=== PATIENT | female | born 1985 | race Caucasian/White ===

== ENCOUNTER 2017-07-17 10:39 | Inpatient (IN) | payer OTHER ==
[~2017-07-17] VITALS: Ht 176 cm; Wt 96.2 kg
[2017-07-17] MEDS ORDERED: OXYTOCIN 30 UNITS/LACT RINGERS 500 ML IV ONE ×2 (10:50→13:10)
[2017-07-17] MEDS ORDERED: OXYTOCIN 30 UNITS/LACT RINGERS 500 ML IV PRN (10:50)
[2017-07-17] MEDS ORDERED: RINGERS SOLUTION,LACTATED 1,000 ML IV PRN (10:50)
[2017-07-17] MEDS ORDERED: RINGERS SOLUTION,LACTATED 1,000 ML IV SCH (10:50)
[2017-07-17] MEDS ORDERED: CITRIC ACID/SODIUM CITRATE 30 ML SOLUTION UDCUP PO PRN (11:00)
[2017-07-17] MEDS ORDERED: METOCLOPRAMIDE HCL 5 MG/ML 2 ML VIAL IVP PRN (11:00)
[2017-07-17 12:21] VITALS: BP 118/77
[2017-07-17 12:44] LABS: EOSINOPHILS % (AUTO) 0.7 % (1.0-6.0); HEMATOCRIT 33.2 % (36-46); HEMOGLOBIN 11.2 g/dL (12.0-16.0); LYMPHOCYTES # (AUTO) 1.4 K/uL (1.0-4.8); LYMPHOCYTES % (AUTO) 10.3 % (22.0-44.0); MEAN CORPUSCULAR HEMOGLOBIN 26.6 pg (26.0-34.0); MEAN CORPUSCULAR HGB CONC 33.8 G/dL (31.0-37.0); MEAN CORPUSCULAR VOLUME 79 fL (80-100); MONOCYTES # (AUTO) 0.9 K/uL (0.1-1.0); MONOCYTES % (AUTO) 6.7 % (2.0-9.0); NEUTROPHILS # (AUTO) 10.8 K/uL (1.8-7.7); NEUTROPHILS % (AUTO) 82.3 % (40.0-70.0); PLATELET COUNT (AUTO)-OB 295 K/uL (150-450); RED BLOOD CELL COUNT(AUTO) 4.22 MIL/uL (4.00-5.20); RED CELL DISTRIBUTION WIDTH 15.8 % (11.5-14.5)
[2017-07-17] MEDS ORDERED: BUPIVACAINE HCL 0.125%/NS/PF 100 ML ED ONE (12:57)
[2017-07-17] MEDS ORDERED: FentaNYL CITRATE-PF 100 MCG/2 ML VIAL ONE (12:58)
[2017-07-17] MEDS ORDERED: RINGERS SOLUTION,LACTATED 1,000 ML IV ONE (13:39)
[2017-07-17] MEDS ORDERED: OxyCODONE HCL/ACETAMINOPHEN 5-325 MG TABLET PO PRN ×2 (13:45)
[2017-07-17] MEDS ORDERED: LIDOCAINE HCL/PF 1% 30 ML VIAL INJ PRN (13:45)
[2017-07-17] MEDS ORDERED: GLYCERIN/WITCH HAZEL LEAF 40 PADS JAR TP PRN (13:45)
[2017-07-17] MEDS ORDERED: MISOPROSTOL 100 MCG TABLET ONE (14:08)
[2017-07-17] MEDS ORDERED: MISOPROSTOL 100 MCG TABLET PR ONE (14:15)
[2017-07-17] MEDS ORDERED: PREN1TAB80 PO (15:06)
[2017-07-17] MEDS: IBUPROFEN 600 MG TABLET PO PRN ×2 (16:18→23:23)
[2017-07-17] MEDS ORDERED: OXYGEN THERAPY IH SCH (20:00)
[2017-07-17] MEDS: SENNA/DOCUSATE SODIUM 187-50 MG TABLET PO SCH (23:23)
[2017-07-18 07:09] LABS: BASOPHILS # (AUTO) 0.04 K/uL (0.00-0.20); BASOPHILS % (AUTO) 0.4 % (0.0-2.0); EOSINOPHILS % (AUTO) 0.82 % (1.0-6.0); HEMATOCRIT 27.8 % (36-46); HEMOGLOBIN 9.1 g/dL (12.0-16.0); LYMPHOCYTES # (AUTO) 1.4 K/uL (1.0-4.8); LYMPHOCYTES % (AUTO) 11.9 % (22.0-44.0); MEAN CORPUSCULAR HGB CONC 32.6 G/dL (31.0-37.0); MEAN CORPUSCULAR VOLUME 80 fL (80-100); MONOCYTES # (AUTO) 0.7 K/uL (0.1-1.0); MONOCYTES % (AUTO) 6.1 % (2.0-9.0); NEUTROPHILS # (AUTO) 9.8 K/uL (1.8-7.7); NEUTROPHILS % (AUTO) 80.9 % (40.0-70.0); PLATELET COUNT (AUTO)-OB 229 K/uL (150-450); RED BLOOD CELL COUNT(AUTO) 3.49 MIL/uL (4.00-5.20); RED CELL DISTRIBUTION WIDTH 16.2 % (11.5-14.5)
[2017-07-18] MEDS: IBUPROFEN 600 MG TABLET PO PRN ×2 (07:17→13:41)
[2017-07-18] MEDS ORDERED: IBUP-2070 PO (08:36)
[2017-07-18] MEDS ORDERED: DSS100 PO (08:37)
[2017-07-18] MEDS ORDERED: INFLUENZA VIRUS VACCINE QVS 2017-18 (3YR+)/PF 60 MCG/0.5 ML SYRINGE IM ONE (10:00)
[2017-07-18] MEDS: SENNA/DOCUSATE SODIUM 187-50 MG TABLET PO SCH (12:16)
[2017-07-18] MEDS ORDERED: BENZOCAINE 20%/MENTHOL 56 GM SPRAY CANISTER TP PRN (13:45)
== END 2017-07-18 14:00 | disposition home or self-care (01) | DRG 775 ==
LOC: OBSVTOIN 10:39 → 4S 10:39
PROVIDERS: ADMIT Obstetrics & Gynecology; ATTEND Obstetrics & Gynecology
PROC: 10E0XZZ Delivery of Products of Conception, External Approach (ICD-10-PCS; principal; 2017-07-17)
PROC: 0KQM0ZZ Repair Perineum Muscle, Open Approach (ICD-10-PCS; 2017-07-17)
PROC: 3E0234Z Introduction of Serum, Toxoid and Vaccine into Muscle, Percutaneous Approach (ICD-10-PCS; 2017-07-18)
DX: O69.81X0 Labor and delivery complicated by cord around neck, without compression, not applicable or unspecified (principal); O70.1 Second degree perineal laceration during delivery; O77.0 Labor and delivery complicated by meconium in amniotic fluid; Z37.0 Single live birth; Z3A.39 39 weeks gestation of pregnancy; Z23 Encounter for immunization
CPT/HCPCS: 86850; 86900; 86901; 90471; J2590; J3010; J3490; J7120